=== PATIENT | female | born 1985 | race Caucasian/White ===

== ENCOUNTER 2024-05-18 20:55 | Outpatient (OUT) | payer OTHER, SELFPAY | END 2024-05-18 20:56 | disposition home or self-care (01) | LOC: SLEEP 20:56 | DX: G47.33 Obstructive sleep apnea (adult) (pediatric) (principal) | CPT/HCPCS: 95810 ==

== ENCOUNTER 2024-06-01 20:52 | Outpatient (OUT) | payer OTHER, SELFPAY | END 2024-06-01 20:53 | disposition home or self-care (01) | LOC: SLEEP 20:53 | DX: G47.33 Obstructive sleep apnea (adult) (pediatric) (principal) | CPT/HCPCS: 95811 ==